=== PATIENT | female | born 1975 | race Asian ===

== ENCOUNTER 2017-05-15 14:33 | Emergency (ER) | payer OTHER ==
--- NOTE | 2017-05-15 18:22 | UC ---
Back Pain HPI - HPI Summary HPI Summary: worsening low back pain over the past week, no urinary sx, no bowel/bladder dysfunction - History of Current Complaint Chief Complaint: UCBackPain Stated Complaint: BACK PAIN Time Seen by Provider: 05/15/17 18:12 Hx Obtained From: Patient Hx Last Menstrual Period: 05/04/17 ?: No Onset/Duration: Gradual Onset, Lasting Days, Still Present Timing: Constant Severity Initially: Moderate Pain Intensity: 7 Pain Scale Used: 0-10 Numeric Back Pain: Is Discrete @ - lower back diffuse Character: Aching Aggravating: Movement Alleviating: Rest Associated Signs And Symptoms: Positive: Negative PMH/Surg Hx/FS Hx/Imm Hx Previously Healthy: Yes - Surgical History Surgical History: Yes - Family History Known Family History: Positive: None Family History: no reported cardiovascular issues in family lineage - Social History Occupation: Employed Full-time Lives: With Family Alcohol Use: None Substance Use Type: None Smoking Status (MU): Never Smoked Tobacco Review of Systems Constitutional: Negative Skin: Negative Eyes: Negative ENT: Negative Respiratory: Negative Cardiovascular: Negative Gastrointestinal: Negative Genitourinary: Negative Motor: Negative Neurovascular: Negative Musculoskeletal: Arthralgia - low back Neurological: Negative Psychological: Negative All Other Systems Reviewed And Are Negative: Yes Physical Exam Triage Information Reviewed: Yes Appearance: Well-Appearing, No Pain Distress, Well-Nourished Vital Signs: Initial Vital Signs Temp 98.8 F 05/15/17 15:25 Pulse 78 05/15/17 15:25 Resp 18 05/15/17 15:25 Pulse Ox 100 05/15/17 15:25 Vital Signs Reviewed: Yes Eye Exam: Normal Eyes: Positive: Conjunctiva Clear ENT Exam: Normal ENT: Positive: Normal ENT inspection, Hearing grossly normal. Negative: Nasal congestion, Nasal drainage, Trismus, Muffled/hoarse voice Dental Exam: Normal Neck exam: Normal Neck: Positive: Supple, Nontender Respiratory Exam: Normal Respiratory: Positive: Chest non-tender, Lungs clear, Normal breath sounds, No respiratory distress, No accessory muscle use Cardiovascular Exam: Normal Cardiovascular: Positive: RRR, No Murmur, Pulses Normal, Brisk Capillary Refill Abdominal Exam: Normal Abdomen Description: Positive: Nontender, No Organomegaly, Soft. Negative: CVA Tenderness (R), CVA Tenderness (L) Bowel Sounds: Positive: Present Musculoskeletal Exam: Normal Musculoskeletal: Positive: ROM Intact Neurological Exam: Normal Neurological: Positive: Alert Psychological Exam: Normal Psychological: Positive: Normal Response To Family Skin Exam: Normal Back Pain Course/Dx - Course Course Of Treatment: flexeril, medrol dose pack, follow with pcp this week - Differential Dx/Diagnosis Differential Diagnosis/HQI/PQRI: Herniated Disc, Osteoporosis, Renal Colic, Strain, Sprain Provider Diagnoses: Lumbar back pain Discharge - Discharge Plan Condition: Stable Disposition: HOME Prescriptions: Cyclobenzaprine HCl [Flexeril 5 mg (NF)] 5 mg PO TID PRN #15 tab PRN Reason: back pain Methylprednisolone [Medrol Dosepak 4 MG*] 4 mg PO .SEE MARIMAR INSTRUCTION #1 marimar Patient Education Materials: Acute Low Back Pain (ED), Lower Back Exercises (ED ) Referrals: Justin Braun MD [Primary Care Provider] - 1 Week
[2017-05-15 18:40] VITALS: BP 110/84
== END 2017-05-15 18:40 | disposition home or self-care (01) ==
LOC: UCEAST 14:33
DX: M54.5 Low back pain (principal); Z32.02 Encounter for pregnancy test, result negative
CPT/HCPCS: 81003; 84702; 99202; G0463